=== PATIENT | female | born 1990 | race African-American/Black ===

== ENCOUNTER 2017-08-20 09:21 | Emergency (ER) | payer OTHER ==
[~2017-08-20] VITALS: Ht 152.4 cm; Wt 67.4 kg
[~2017-08-20 09:21] MED LIST: DELTASONE20 M1 PO; K-DUR20 MEQ PO; MELOXICAM7.5 MG PO; OXAYDO5 MG PO; PERCOCET 5/31 TABLET PO; TRAMADOL HCL50 MG PO; VENTOLIN HFA18 GM IH
[2017-08-20] MEDS ORDERED: ZITHROMAX Z-PA250 MG PO (11:29)
[2017-08-20] MEDS ORDERED: PREDNISONE20 MG PO (11:29)
[2017-08-20 12:04] VITALS: BP 112/77
== END 2017-08-20 12:00 | disposition home or self-care (01) ==
LOC: EME 09:21
DX: J45.909 Unspecified asthma, uncomplicated (principal); J20.9 Acute bronchitis, unspecified; F17.200 Nicotine dependence, unspecified, uncomplicated
CPT/HCPCS: 71020; 94640; 99281; 99284; J7512

== ENCOUNTER → 2017-11-25 15:27 | Emergency (ER) | payer OTHER ==
[~2017-11-25] VITALS: Ht 154.9 cm; Wt 62.3 kg
[~2017-11-25 15:27] MED LIST changes: +PREDNISONE20 MG PO; +ZITHROMAX Z-PA250 MG PO
[2017-11-25 15:47] VITALS: BP 107/71
== END | disposition left against medical advice (07) ==
LOC: EME 15:27
DX: T76.91XA Unspecified adult maltreatment, suspected, initial encounter (principal); Z53.21 Procedure and treatment not carried out due to patient leaving prior to being seen by health care provider

== ENCOUNTER 2017-12-21 15:12 | Emergency (ER) | payer OTHER ==
[~2017-12-21] VITALS: Ht 160 cm; Wt 65.9 kg
[2017-12-21 15:47] LABS: BASOPHIL (%) 0.9 % (0-1); BASOPHIL COUNT 0.1 K/uL (0-0.1); EOSINOPHIL (%) 0.7 % (0-5); EOSINOPHIL COUNT 0.1 K/uL (0-0.3); HEMATOCRIT 40.7 % (36.0-46.0); HEMOGLOBIN 12.7 G/DL (11.9-15.5); IMMATURE GRANULOCYTE (%) 0.4 % (0.0-0.7); LYMPHOCYTE COUNT 1.7 K/uL (1.0-2.8); MCH 25.2 PG (29.0-34.0); MCHC 31.2 G/DL (30.0-36.0); MCV 80.8 FL (83-99); MONOCYTE (%) 6.3 % (3-12); MONOCYTE COUNT 0.5 K/uL (0-0.8); NEUTROPHIL (%) 68.7 % (45-76); NEUTROPHIL COUNT 5.2 K/uL (1.8-6.4); PLATELET COUNT 379 K/uL (156-360); RBC DIS.WIDTH-SD 43.7 % (39-53); RED BLOOD COUNT 5.04 M/uL (3.80-5.20); WHITE BLOOD COUNT 7.5 K/uL (4.1-10.2)
[2017-12-21 15:55] LABS: ALBUMIN 4.6 g/dL (3.2-4.8); CHLORIDE 105 mEq/L (99-109); SODIUM 139 mEq/L (136-147)
[2017-12-21 15:56] LABS: MAGNESIUM 2.2 mg/dL (1.3-2.7)
[2017-12-21 15:58] LABS: GLUCOSE 98 mg/dL (70-99); TOTAL PROTEIN 7.8 g/dL (6.4-8.3)
[2017-12-21 16:00] LABS: TOTAL BILIRUBIN 0.9 mg/dL (0.0-1.0)
[2017-12-21 16:01] LABS: ALKALINE PHOSPHATASE 49 IU/L (3-129); CREATININE 0.7 mg/dL (0.6-1.3); GFR ESTIMATE (CALCULATED) > 59 mL/min/
[2017-12-21 16:02] LABS: UREA NITROGEN (BUN) 8 mg/dL (9-23)
[2017-12-21 16:03] LABS: AST (GOT) 16 IU/L (2-34)
[2017-12-21 16:04] LABS: ALT (GPT) 17 IU/L (3-49)
[2017-12-21 16:05] LABS: LIPASE 67 U/L (1.0-51.0)
[2017-12-21 16:11] LABS: QUANTITATIVE HCG < 4.0 MIU/ML
[2017-12-21 16:55] LABS: APPEARANCE CLEAR ((CLEAR)); BILIRUBIN NEGATIVE; BLOOD SMALL; COLOR STRAW ((YELLOW)); GLUCOSE (STRIP) >=500; KETONES NEGATIVE; LEUKOCYTES NEGATIVE; NITRITE NEGATIVE; PROTEIN (STRIP) NEGATIVE; SPECIFIC GRAVITY 1.013 (1.000-1.030); UROBILINOGEN 0.2 MG/DL (0.2-1.0)
[2017-12-21 17:00] LABS: BACTERIA NONE SEEN /HPF; EPITHELIAL CELLS RARE /HPF; MUCUS TRACE /LPF; RED BLOOD CELLS 0-5 /HPF (0-5); UCUL ADDED? NO; WHITE BLOOD CELLS 0-5 /HPF (0-5)
[2017-12-21] MEDS ORDERED: PERCOCET 5/31 TABLET PO (21:41)
[2017-12-21] MEDS ORDERED: ZOFRAN ODT4 MG PO (21:45)
[2017-12-21 22:20] VITALS: BP 111/68
== END 2017-12-21 22:21 | disposition home or self-care (01) ==
LOC: EME 15:12
PROVIDERS: Emergency Medicine
DX: N83.201 Unspecified ovarian cyst, right side (principal); Z87.891 Personal history of nicotine dependence; Z88.0 Allergy status to penicillin; J45.909 Unspecified asthma, uncomplicated; M25.511 Pain in right shoulder
CPT/HCPCS: 74177; 76856; 80053; 81003; 83690; 83735; 84702; 85025; 86850; 86900; 86901; 99281; 99285; J1885; J2270; J2405; J3010; J7030; J7042

== ENCOUNTER 2018-04-09 08:30 | Emergency (ER) | payer OTHER ==
[~2018-04-09] VITALS: Ht 152.4 cm; Wt 58.6 kg
[~2018-04-09 08:30] MED LIST changes: +ZOFRAN ODT4 MG PO
[2018-04-09 09:10] LABS: HEMOGLOBIN 12.7 G/DL (11.9-15.5); MCH 25.7 PG (29.0-34.0); MCHC 32.6 G/DL (30.0-36.0); MCV 78.9 FL (83-99); PLATELET COUNT 433 K/uL (156-360); RBC DIS.WIDTH-CV 13.4 % (11.8-14.6); RBC DIS.WIDTH-SD 38.3 % (39-53); RED BLOOD COUNT 4.94 M/uL (3.80-5.20); WHITE BLOOD COUNT 10.2 K/uL (4.1-10.2)
[2018-04-09 09:20] LABS: ALBUMIN 4.4 g/dL (3.2-4.8)
[2018-04-09 09:21] LABS: CHLORIDE 106 mEq/L (99-109); POTASSIUM 3.7 mEq/L (3.7-5.4); SODIUM 139 mEq/L (136-147)
[2018-04-09 09:23] LABS: GLUCOSE 108 mg/dL (70-99)
[2018-04-09 09:25] LABS: TOTAL BILIRUBIN 1.4 mg/dL (0.0-1.0)
[2018-04-09 09:26] LABS: ALKALINE PHOSPHATASE 49 IU/L (3-129)
[2018-04-09 09:27] LABS: CREATININE 0.7 mg/dL (0.6-1.3); GFR ESTIMATE (CALCULATED) > 59 mL/min/
[2018-04-09 09:28] LABS: AST (GOT) 13 IU/L (2-34); UREA NITROGEN (BUN) 6 mg/dL (9-23)
[2018-04-09 09:30] LABS: ALT (GPT) 13 IU/L (3-49)
[2018-04-09 09:38] LABS: QUANTITATIVE HCG < 4.0 MIU/ML
[2018-04-09 11:14] LABS: APPEARANCE CLOUDY ((CLEAR)); BILIRUBIN NEGATIVE; BLOOD MODERATE; COLOR YELLOW ((YELLOW)); GLUCOSE (STRIP) NEGATIVE; KETONES 5; LEUKOCYTES LARGE; NITRITE NEGATIVE; PROTEIN (STRIP) 100; SPECIFIC GRAVITY 1.027 (1.000-1.030); UROBILINOGEN 0.2 MG/DL (0.2-1.0)
[2018-04-09 11:31] LABS: RED BLOOD CELLS RARE /HPF (0-5); WHITE BLOOD CELLS 15-20 /HPF (0-5)
[2018-04-09 11:32] LABS: AMORPHOUS URATES CRYSTALS 2+; BACTERIA 2+ /HPF; EPITHELIAL CELLS RARE /HPF; MUCUS 1+ /LPF; UCUL ADDED? YES
[2018-04-09] MEDS ORDERED: MACRODANTIN100 MG PO (14:29)
[2018-04-09 15:01] VITALS: BP 100/64
[2018-04-09 15:26] LABS: SOURCE SWAB
== END 2018-04-09 15:08 | disposition home or self-care (01) ==
LOC: EME 08:30
PROVIDERS: Emergency Medicine
DX: N39.0 Urinary tract infection, site not specified (principal); J45.909 Unspecified asthma, uncomplicated; F17.200 Nicotine dependence, unspecified, uncomplicated; Z88.0 Allergy status to penicillin; Z88.6 Allergy status to analgesic agent
CPT/HCPCS: 76856; 80053; 81003; 84702; 85027; 87077; 87086; 87186; 87210; 87491; 87591; 93971; 99281; 99285; J0780; J2270; J2405; J3010

== ENCOUNTER 2018-06-25 17:51 | Emergency (ER) | payer OTHER ==
[~2018-06-25] VITALS: Ht 152.4 cm; Wt 56.3 kg
[~2018-06-25 17:51] MED LIST changes: +MACRODANTIN100 MG PO
[2018-06-25 18:58] LABS: HEMATOCRIT 37.9 % (36.0-46.0); MCHC 31.7 G/DL (30.0-36.0); PLATELET COUNT 383 K/uL (156-360); RBC DIS.WIDTH-CV 13.8 % (11.8-14.6); RBC DIS.WIDTH-SD 40.9 % (39-53); RED BLOOD COUNT 4.62 M/uL (3.80-5.20); WHITE BLOOD COUNT 4.4 K/uL (4.1-10.2)
[2018-06-25 19:07] LABS: ALBUMIN 4.6 g/dL (3.2-4.8)
[2018-06-25 19:08] LABS: CHLORIDE 104 mEq/L (99-109); POTASSIUM 4.4 mEq/L (3.7-5.4); SODIUM 140 mEq/L (136-147)
[2018-06-25 19:10] LABS: GLUCOSE 100 mg/dL (70-99); TOTAL PROTEIN 8.1 g/dL (6.4-8.3)
[2018-06-25 19:12] LABS: TOTAL BILIRUBIN 0.7 mg/dL (0.0-1.0)
[2018-06-25 19:13] LABS: ALKALINE PHOSPHATASE 45 IU/L (3-129)
[2018-06-25 19:14] LABS: CREATININE 0.8 mg/dL (0.6-1.3); GFR ESTIMATE (CALCULATED) > 59 mL/min/
[2018-06-25 19:15] LABS: AST (GOT) 18 IU/L (2-34); UREA NITROGEN (BUN) 6 mg/dL (9-23)
[2018-06-25 19:17] LABS: ALT (GPT) 25 IU/L (3-49)
[2018-06-25 19:29] LABS: QUANTITATIVE HCG < 4.0 MIU/ML
[2018-06-25 20:17] LABS: SOURCE SWAB
[2018-06-25 20:22] LABS: APPEARANCE CLEAR ((CLEAR)); BILIRUBIN NEGATIVE; BLOOD NEGATIVE; COLOR YELLOW ((YELLOW)); GLUCOSE (STRIP) NEGATIVE; KETONES NEGATIVE; LEUKOCYTES NEGATIVE; NITRITE NEGATIVE; PROTEIN (STRIP) 30; SPECIFIC GRAVITY 1.024 (1.000-1.030); UCUL ADDED? NO; UROBILINOGEN 0.2 MG/DL (0.2-1.0)
[2018-06-25] MEDS ORDERED: ZOFRAN ODT4 MG PO (21:36)
[2018-06-25 22:09] VITALS: BP 105/67
== END 2018-06-25 22:12 | disposition home or self-care (01) ==
LOC: RME 17:51 → EME 17:51 → RME 22:12
PROVIDERS: Physician Assistant Medical
DX: R10.31 Right lower quadrant pain (principal); R11.2 Nausea with vomiting, unspecified; R51 Headache; J45.909 Unspecified asthma, uncomplicated; Z88.0 Allergy status to penicillin; Z88.6 Allergy status to analgesic agent; F17.200 Nicotine dependence, unspecified, uncomplicated
CPT/HCPCS: 76856; 80053; 81003; 84702; 85027; 87210; 87491; 87591; 99281; 99284; J0780; J1200; J7030